=== PATIENT | male | born 1960 | race Caucasian/White ===

== ENCOUNTER 2020-11-08 07:34 | Day surgery (SDC) | payer MEDICARE ==
[~2020-11-08] VITALS: Ht 172.7 cm; Wt 75.0 kg
[2020-11-08 08:00] VITALS: BP 149/101
[2020-11-08] MEDS ORDERED: VITA1TAB31 PO (08:17)
[2020-11-08] MEDS ORDERED: INTE30SY IM (08:18)
[2020-11-08] MEDS ORDERED: PANT-47 PO (08:19)
[2020-11-08] MEDS ORDERED: OXYB5TAB16 PO (08:20)
[2020-11-08] MEDS ORDERED: LISI20TA28 PO (08:20)
[2020-11-08] MEDS ORDERED: LIOT5TAB10 PO (08:21)
[2020-11-08] MEDS ORDERED: LEVO100T9 PO (08:21)
[2020-11-08] MEDS ORDERED: NALT50TA PO (08:22)
[2020-11-08] MEDS ORDERED: LDN (08:22)
[2020-11-08] MEDS ORDERED: LYSI500T11 PO (08:23)
[2020-11-08] MEDS ORDERED: fentaNYL/PF 50MCG/1 ML 2ML syringe ONE (08:24)
[2020-11-08] MEDS ORDERED: MIDAZolam 1 MG/ML 5ML VIAL ONE (08:24)
[2020-11-08] MEDS ORDERED: ASCO-336 PO (08:24)
[2020-11-08] MEDS ORDERED: DIAZ-351 (08:25)
[2020-11-08] MEDS ORDERED: MV-M1TAB19 PO (08:27)
[2020-11-08] MEDS ORDERED: CRAN450T4 PO (08:28)
[2020-11-08] MEDS ORDERED: METH1TAB47 PO (08:28)
[2020-11-08 10:03] VITALS: BP 123/89
[2020-11-08 10:13] VITALS: BP 148/80
[2020-11-08 10:23] VITALS: BP 136/99
[2020-11-08 10:33] VITALS: BP 136/95
== END 2020-11-08 11:00 | disposition home or self-care (01) ==
LOC: GI LAB 07:34
PROVIDERS: ATTEND Internal Medicine Gastroenterology
DX: Z09 Encounter for follow-up examination after completed treatment for conditions other than malignant neoplasm (principal); K64.8 Other hemorrhoids; Z98.890 Other specified postprocedural states; Z86.010 Personal history of colon polyps
CPT/HCPCS: 45380; 99152; 99153; J2250; J3010; J7040; A4620

== ENCOUNTER 2023-02-03 09:31 | Emergency (ER) | payer MEDICARE ==
[~2023-02-03] VITALS: Ht 172.7 cm; Wt 75.0 kg
[~2023-02-03 09:31] MED LIST: ASCO-336 PO; CRAN450T4 PO; DIAZ-351; INTE30SY IM; LDN; LEVO100T9 PO; LIOT5TAB10 PO; LISI20TA28 PO; LYSI500T11 PO; METH1TAB47 PO; MV-M1TAB19 PO; NALT50TA PO; OXYB5TAB16 PO; PANT-47 PO; VITA1TAB31 PO
[2023-02-03] MEDS ORDERED: LIDOcaine 2% 10ml TOPICAL JELLY (Urojet) MM ONE ×2 (11:05)
[2023-02-03] MEDS ORDERED: LidoCAINE 2% Topical Jelly 11mL syringe MM ONE ×2 (11:05)
--- NOTE | 2023-02-03 11:35 | NUR ---
THIS RN MADE TWO ATTEMPTS TO INSERT A THOMAS CATHETER USING A 14FR AND A 14FR COUDE, STRICTURE IS VERY NEAR THE URETHRAL OPENING AND THIS INTENSIVE CARE AMBULANCE PARAMEDIC WAS UNABLE TO PLACE. DR SCHROEDER NOTIFIED, UROLOGIST TO BE PAGED.
--- NOTE | 2023-02-03 12:15 | NUR ---
DR. JAMISON AT BEDSIDE.
[2023-02-03 12:35] VITALS: BP 153/93
[2023-02-03] MEDS ORDERED: CEPH-585 PO (14:12)
== END 2023-02-03 14:37 | disposition home or self-care (01) ==
LOC: ER 09:32
DX: R33.9 Retention of urine, unspecified (principal); Z88.1 Allergy status to other antibiotic agents
CPT/HCPCS: 51702; 99283; 99284; A4358

== ENCOUNTER 2025-01-04 12:49 | Inpatient (IN) | payer MEDICARE ==
[~2025-01-04] VITALS: Ht 172.7 cm; Wt 74.1 kg
[~2025-01-04 12:49] MED LIST changes: +CEPH-585 PO; -DIAZ-351; +DIAZ-351 PO; -NALT50TA PO; +NALT50TA5 PO; -OXYB5TAB16 PO; +OXYB5TAB21 PO
--- NOTE | 2025-01-04 12:54 | Physician Documentation ---
History of Present Illness ~ Stated Complaint: GROUND LEVEL FALL Time Seen by MD: 12:49 HPI 64-year-old male presents to the ED with a complaint of four days of left hip pain. States he has a history of MS for 30 yrswhich is primarily affected the right side of his body. 4 days ago he had a fall which caused his left hip pain. He thought it would resolved by now but states that when he tries to ambulate he has 10/10 pain in his left hip. Patient has pre-existing weakness on the right side and now is unable to bear weight on his left lower extremity. He is currently being cared for by his . She was concerned she was unable to transfer him or straight cath him very to the urethral strictures that have developed over the years patient states that on the he is supposed to have a Bloom placed by Dr. Ritter Medication Reconciliation Allergies: Coded Allergies: floxacillin (Verified Allergy, Unknown, 01/04/25) Uncoded Allergies: DYE SDC BLUE (Allergy, Unknown, 11/08/20) Scheduled Ascorbic Acid (Vitamin C), 1 TAB PO DAILY, (Reported) Cephalexin*Monohydrate* (Keflex*), 1 CAP PO QID Cranberry Extract (Cranberry), Unknown Dose PO QAM, (Reported) Diazepam (Diazepam), TID, (Reported) Interferon Beta-1A (Avonex), IM weekly, (Reported) Levothyroxine Sodium (Levothyroxine Sodium), 1 TAB PO DAILY, (Reported) Liothyronine Sodium (Liothyronine Sodium), 1 TAB PO DAILY, (Reported) Lisinopril (Lisinopril), 1 TAB PO DAILY, (Reported) Lysine (l-Lysine), 1 TAB PO DAILY, (Reported) Methyl-B12/l-Mefolate/B6 Phos (Foltanx Tablet), Unknown Dose PO DAILY, (Reported) Mv-Mn/Iron/Fa/Herbal Cmplx#190 (Vitamin D3 Complete Caplet), 5,000 UNIT PO DAILY, (Reported) Naltrexone Hcl (Naltrexone Hcl), 1 TAB PO DAILY, (Reported) Oxybutynin Chloride (Oxybutynin Chloride), 1 TAB PO Q12H, (Reported) Pantoprazole Sodium (PROTONIX tablet), 1 TAB PO DAILY, (Reported) Vit B Complex 100 Cmb #2/Herbs (Sm Natural Balanced B-100 Tab), 1 TAB PO DAILY, (Reported) Miscellaneous Medications [Ldn], Unknown Dose, (Reported) Past Medical History Past Medical History: *RENAL/* Past Surgical History: other Drug Use: none Lives In: Home Review of Systems All Other Systems at this time: Reviewed and Negative ROS As stated above in the HPI, otherwise all systems are reviewed and negative. Physical Exam Physical Exam General: Alert, no apparent distress. Respiratory: Lungs clear, no respiratory distress. Cardiovascular: Regular rate and rhythm, no murmurs. Extremities: Decreased range of motion on bilateral lower extremity, unable to bear weight Neurologic: Oriented x4. Psychiatric: Normal mood and affect. Skin: Normal color, warm and dry. No edema, no ecchymosis. Progress Results/Orders Results/Orders Orders - GUME YUAN BONUS CLERK Hip Unilateral 2 Views (01/04/25 12:55) Ct Lower Extremity (01/04/25 14:42) Page Hospitalist (01/04/25 ) Completed Orders - GUME YUAN BONUS CLERK Hip Unilateral 2 Views (01/04/25 12:55) Hydrocodone/Apap 10/325 ([place] 10/325mg (01/04/25 13:50) Ct Lower Extremity (01/04/25 14:42) Vital Signs 01/04/25 12:56 Temp 98.7 Pulse 84 Resp 16 B/P (MAP) 150/109 Pulse Ox 99 O2 Flow Rate 0 Medical Decision Making Findings Patient's CT and x-ray do not show any findings of acute fracture of the left hip. Concerned that patient is still is unable to bear weight in addition to his pre-existing MS diagnosis which has caused gross weakness on his right side of his body. Based on these findings, and his be in his only clinical documentation clerk, I am currently recommending hospital admission for evaluation of physical therapy and occupational therapy along with a potentially rehab this patient is unable to care for himself. , Differential Dx:Considerations: Include: Closed head injury, Cardiac injury, Fracture(s), Intraabdominal injury, Pneumothorax, Cerebral contusion, Pulmonary contusion, Spine injury, Tracheal injury, Urological injury, Vascular injury, Abrasion(s), Contusion(s), Foreign body(s), Hematoma(s), Laceration(s), Encephalopathy, Other Departure Disposition: ADMITTED INPATIENT Admitted to Inpatient Unit: to hospitalist Impression: Primary Impression: Hip pain Additional Impression: Urinary retention Referrals: NO PRIMARY CARE PROVIDER (PCP) Signature Scribe Signature: i Attestation: The note accurately reflects work and decisions made by me.Gume Yuan - LONNY 01/04/25 15:01 GUME YUAN NP January 04, 2025 12:54
--- NOTE | 2025-01-04 13:50 | RADIOLOGY REPORT ---
CLINICAL INDICATION: fall TECHNIQUE: 3 radiographic views of the right hip were obtained. Comparison: None FINDINGS/IMPRESSION: There is no evidence of acute fracture or dislocation. Partially visualized right femoral intramedull alba harsh and dynamic screw fixation. The visualized joint space is well maintained. The alignment is anatomical. Phleboliths are noted within the right hemipelvis.
[2025-01-04] MEDS: HYDROcodone/acetaminophen 10/325mg tab PO ONE (14:02)
--- NOTE | 2025-01-04 14:53 | RADIOLOGY REPORT ---
INDICATION: fall hip, UNABLE TO BEAR WEIGHT, COMPARISON: None TECHNIQUE: CT of the right was performed without contrast. Volume transverse images were obtained an d reconstructed in multiple planes using bone and soft tissue algorithms. CONTRAST: None Radiation Dose Information: CT Dose: CTDI volume is 13.93 mGy. Dose-length product is 498.71 mGy*cm FINDINGS: The alignment is normal. The joint spaces are normal. There is no fracture, dislocation, or focal osseous lesions. The soft tissues are normal. IMPRESSION: 1.NO FRACTURE DISLOCATION OF THE LEFT HIP 2.All CT scans at this medical facility are performed using dose modulation techniques as appropriat e to a performed exam including the following: Automated exposure control was utilized; adjustment of the MA and/or KV according to patient size; and use of iterative reconstruction technique.
[2025-01-04] MEDS ORDERED: magnesium sulf-water 4G/100mL 100 ML IV PRN (15:15)
[2025-01-04] MEDS ORDERED: magnesium hydroxide 30ml (MOM) UD suspension PO PRN (15:15)
[2025-01-04] MEDS ORDERED: HYDROcodone/acetaminophen 5mg/325mg tablet PO PRN (15:15)
[2025-01-04] MEDS ORDERED: HYDROcodone/acetaminophen 10/325mg tab PO PRN (15:15)
[2025-01-04] MEDS ORDERED: morphine 2 MG/ML inj. syringe IV PRN ×2 (15:15)
[2025-01-04] MEDS ORDERED: ondansetron 4mg rapidly disintigrating tab PO PRN (15:15)
[2025-01-04] MEDS ORDERED: potassium Cl 40MEQ/1/2NS 520ml 520 ML IV PRN (15:15)
[2025-01-04] MEDS ORDERED: potassium Cl 20 mEq SR tablet PO PRN ×2 (15:15)
[2025-01-04] MEDS ORDERED: magnesium sulf-water 2g/50mL 50 ML IV PRN (15:15)
[2025-01-04] MEDS ORDERED: ondansetron/PF 4mg/2ml inj IV PRN (15:15)
[2025-01-04] MEDS ORDERED: mag hydrox/Alum hydrox/simeth 30ml oral suspension PO PRN (15:15)
[2025-01-04] MEDS ORDERED: acetaminophen 325mg tablet PO PRN ×2 (15:15)
[2025-01-04] MEDS: LidoCAINE 2% Topical Jelly 11mL syringe (UROJET) TOP ONE (15:35)
[2025-01-04 15:37] LABS: BASOPHILS # (AUTO) 0.1 X10'3 (0-0.2); BASOPHILS % (AUTO) 1.3 % (0-1); EOSINOPHILS # (AUTO) 0.2 X10'3 (0-0.9); EOSINOPHILS % (AUTO) 2.3 % (0-6); HEMATOCRIT 48.6 % (42.0-52.0); HEMOGLOBIN 16.4 g/dl (14.0-17.9); LYMPHOCYTES % (AUTO) 14.5 % (21-51); MEAN CORPUSCULAR HEMOGLOBIN 28.8 PG (27.0-31.0); MEAN CORPUSCULAR HGB CONC 33.8 g/dL (33.0-36.5); MEAN CORPUSCULAR VOLUME 85.3 FL (78-98); MEAN PLATELET VOLUME 6.7 FL (7.4-10.4); MONOCYTES # (AUTO) 0.7 X10'3 (0-0.9); MONOCYTES % (AUTO) 10.1 % (2-12); NEUTROPHILS # (AUTO) 4.8 X10'3 (1.8-7.7); NEUTROPHILS % (AUTO) 71.8 % (42-75); PLATELET COUNT 223 X10'3 (140-440); RED CELL DISTRIBUTION WIDTH 14.7 % (11.5-14.5); WHITE BLOOD COUNT 6.6 X10'3 (4.5-11.0)
[2025-01-04 15:52] LABS: ALANINE AMINOTRANSFERASE 23 U/L (12-78); ALBUMIN 3.4 G/DL (3.4-5.0); ALBUMIN/GLOBULIN RATIO 0.9 (1.1-1.5); ALKALINE PHOSPHATASE 107 IU/L (46-116); ANION GAP 6 (8-16); ASPARTATE AMINO TRANSFERASE 14 U/L (10-37); BILIRUBIN,TOTAL 0.4 MG/DL (0.1-1.0); BLOOD UREA NITROGEN 25 MG/DL (7-18); BUN/CREATININE RATIO 26.3 (10.0-20.0); CALCIUM 8.3 MG/DL (8.5-10.1); CHLORIDE 105 MMOL/L (99-107); CREATININE 0.95 MG/DL (0.60-1.10); GLUCOSE 92 MG/DL (70-104); MAGNESIUM 2.1 MG/DL (1.5-2.4); POTASSIUM 4.1 MMOL/L (3.5-5.1); SODIUM 141 MMOL/L (135-145); TOTAL CARBON DIOXIDE 30.4 MMOL/L (24-32); eCRCL 74 ML/MIN; eGFR 79 ML/MIN
[2025-01-04] MEDS ORDERED: hydrALAZINE 20mg/ml inj. IV PRN (16:25)
[2025-01-04] MEDS: normal saline 1000ml 1,000 ML IV SCH (16:31)
--- NOTE | 2025-01-04 16:34 | HISTORY AND PHYSICAL ---
History & Physical Providers to CC ~ History of Present Illness Reason for Admit\Complaint: placement History of Present Illness John Skelton is a 64-year-old male with past medical history of multiple sclerosis with right-sided paresis, urethral stricture with current straight cath use, TIA in 2023, hypertension who presented to the ED with chief complaint of new onset left-sided weakness after a witnessed mechanical fall that occurred 3 days ago. Patient states that he was able to ambulate with assistive device with existing right-sided weakness prior to fall. However since fall, patient is unable to bear weight. Patient denies prior WI/CAD, CVA, cardiac arrhythmia, DVT/PE, or GIB. Patient denies chest pain, palpitations, shortness of breath, abdominal pain, n/v/d, fever, chills. Patient is to be admitted for further workups, treatment, and physical therapy evaluation. Allergies: Coded Allergies: floxacillin (Verified Allergy, Unknown, 01/04/25) Uncoded Allergies: DYE SDC BLUE (Allergy, Unknown, 11/08/20) Home Medications Home Medications Active Reported Foltanx Tablet (Methyl-B12/l-Mefolate/B6 Phos) Unknown Strength Tablet Unknown Dose PO DAILY Vitamin D3 Complete Caplet (Mv-Mn/Iron/Fa/Herbal Cmplx#190) 1 Each Tablet 5,000 Unit PO DAILY Diazepam 5 Mg Tablet TID l-Lysine (Lysine) 500 Mg Tablet 1 Tab PO DAILY Naltrexone Hcl 50 Mg Tablet 1 Tab PO DAILY [Ldn] Unknown Strength Unknown Dose Levothyroxine Sodium 100 Mcg Tablet 1 Tab PO DAILY Liothyronine Sodium 5 Mcg Tablet 1 Tab PO DAILY Oxybutynin Chloride 5 Mg Tablet 1 Tab PO Q12H Lisinopril 20 Mg Tablet 1 Tab PO DAILY PROTONIX tablet (Pantoprazole Sodium) 40 Mg Tablet.dr 1 Tab PO DAILY Avonex (Interferon Beta-1A) 30 Mcg/0.5 Ml Kit IM WEEKLY Sm Natural Balanced B-100 Tab (Vit B Complex 100 Cmb #2/Herbs) 100 Mg Tablet 1 Tab PO DAILY Past Medical History Past Medical History Hypertension Multiple sclerosis with right-sided weakness TIA in 2023 Urethral stricture Past Surgical History Surgical History Comment Noncontributory Past Social History Social History Comment Alcohol: Denies Tobacco: Denies Illicit drug use: Denies Living situation:Lives at home with spouse ROS ROS Other than positives in HPI, all 14 review of systems are negative Exam Vitals: Vital Signs Date Time Temp Pulse Resp B/P (MAP) Pulse Ox O2 Delivery O2 Flow Rate FiO2 01/04/25 15:27 18 01/04/25 12:56 98.7 84 150/109 99 0 General: Generalized weakness, A&Ox 3, NAD HEENT: Normocephalic, PERRLA Neck: Supple, trachea midline, no JVD Chest: Clear to auscultation bilaterally Cardiovascular: RRR, S1&S2 Abdomen: Soft and nontender Extremities: No cyanosis/clubbing/or edema Central Nervous System: No focal deficits, right-sided paralysis Musculoskeletal: Right-sided paresis in upper and lower extremities; 4/5 strength in left upper and lower extremities Skin: Warm and intact Diagnostic Data Last Recorded Lab Results: 01/04/25 1527 01/04/25 1527 Additional Plan # Mechanical fall # Multiple Sclerosis # Urethral stricture -fell 3 days ago due to weakness, since then unable to ambulate even with assistive device; xray and CT negative fracture -straight cath at home, follows urologist Dr. Ritter, scheduled for suprapubic cath; consult Dr. Ritter -follow UA, PT eval, supportive care # HTN -home lisinopril dose adjusted, start amlodipine, prn hydralazine # Hx TIA -start aspirin, follow lipid panel # Hypothyroidism -continue home levothyroxine, follow TSH/T4 DVT/VTE prophylaxis: heparin Code status: Full code I spent a total of 30 minutes discussing Advanced Care Planning measures with the patient. Advance care planning: Discussed with patient the importance of advance care planning in case of emergent situation. We discussed various resuscitative measures/ ACP with the patient at the time of admission. Patient voiced understanding and patient has decided on a full code status. Date of Service: January 04, 2025 Billing Provider: RICARDO NGUYEN Common Visit Codes: [id number] INP/OBS CARE (HIGH) Secondary Visit Codes: 82177-LOTYRTTF CARE PLAN 30 MINUTES RICARDO NGUYEN January 04, 2025 16:34
[2025-01-04] MEDS ORDERED: OXYB5SYR PO (16:43)
[2025-01-04 16:47] LABS: CHOL/HDL RATIO 5.2 (0.00-4.99); CHOLESTEROL 233 MG/DL (0-200); HDL CHOLESTEROL 45 MG/DL (35-60); LDL CHOLESTEROL 158 MG/DL (50-100); TRIGLYCERIDES 81 MG/DL (20-135)
[2025-01-04 16:48] LABS: BILIRUBIN,URINE NEGATIVE (Neg); CLARITY,URINE SLIGHTLY CLOUDY (Clear); COLOR,URINE YELLOW (Yellow); GLUCOSE, URINE NEGATIVE (Neg); KETONES,URINE TRACE mg/dl (Neg); LEUKOCYTE ESTERASE ,URINE SMALL (Neg); NITRITES, URINE POSITIVE (Neg); OCCULT BLOOD,URINE SMALL (Neg); PROTEIN,URINE NEGATIVE (Neg); UROBILINOGEN,URINE 0.2 E.U/dL (0.2-1.0)
[2025-01-04 16:52] LABS: UA COLLECTION TYPE FOLEY CATH
[2025-01-04] MEDS: pantoprazole 40 MG vial IV ONE (16:52)
[2025-01-04] MEDS: amLODIPine 5mg tablet PO ONE (16:52)
[2025-01-04 16:53] LABS: BACTERIA,URINE FEW /HPF (Neg); MUCUS STRANDS NONE SEEN /LPF (Neg); SQUAMOUS EPITHELIAL CELL,UR FEW /LPF (FEW)
[2025-01-04] MEDS: aspirin 81mg, enteric-coated 1 TAB TABLET.DR PO ONE (16:53)
[2025-01-04] MEDS: lisinopril 20mg tablet PO ONE (16:53)
[2025-01-04 16:54] LABS: WBC,URINE 30-50 /HPF (0-4)
[2025-01-04 18:00] VITALS: BP_SYST 107; BP_SYST 165; BP_DIAS 63; BP_DIAS 98; PULSE 62; PULSE 77; RESP 14; RESP 18; TEMP 97.4; TEMP 98.9; O2SAT 96; O2SAT 97
[2025-01-04] MEDS: K and/or MAG REPLACEMENT MC SCH (20:00)
[2025-01-04] MEDS: heparin, porcine 5000 units/ml vial SQ SCH (21:30)
[2025-01-04] MEDS: docusate sod 100mg capsule PO SCH (21:31)
[2025-01-04 22:00] VITALS: BP_SYST 110; BP_SYST 130; BP_DIAS 80; PULSE 74; RESP 16; RESP 18; TEMP 97.7; TEMP 98.1; O2SAT 94; O2SAT 96
[2025-01-05] VITALS (7 sets, daily range): BP systolic 140–205; BP diastolic 91–119; PULSE 65–81; RESP 18–20; TEMP 97.3–98.1; O2SAT 95–96
[2025-01-05 06:08] LABS: BASOPHILS # (AUTO) 0.1 X10'3 (0-0.2); BASOPHILS % (AUTO) 1.4 % (0-1); EOSINOPHILS # (AUTO) 0.2 X10'3 (0-0.9); EOSINOPHILS % (AUTO) 3.2 % (0-6); HEMATOCRIT 45.7 % (42.0-52.0); HEMOGLOBIN 15.4 g/dl (14.0-17.9); LYMPHOCYTES % (AUTO) 17.9 % (21-51); MEAN CORPUSCULAR HEMOGLOBIN 28.8 PG (27.0-31.0); MEAN CORPUSCULAR HGB CONC 33.8 g/dL (33.0-36.5); MEAN CORPUSCULAR VOLUME 85.3 FL (78-98); MEAN PLATELET VOLUME 6.8 FL (7.4-10.4); MONOCYTES # (AUTO) 0.6 X10'3 (0-0.9); MONOCYTES % (AUTO) 11.5 % (2-12); NEUTROPHILS # (AUTO) 3.7 X10'3 (1.8-7.7); PLATELET COUNT 186 X10'3 (140-440); RED BLOOD COUNT 5.36 X10'6 (4.70-6.10); RED CELL DISTRIBUTION WIDTH 14.9 % (11.5-14.5); WHITE BLOOD COUNT 5.5 X10'3 (4.5-11.0)
[2025-01-05 06:38] LABS: ALANINE AMINOTRANSFERASE 17 U/L (12-78); ALKALINE PHOSPHATASE 94 IU/L (46-116); ANION GAP 6 (8-16); ASPARTATE AMINO TRANSFERASE 9 U/L (10-37); BILIRUBIN,TOTAL 0.4 MG/DL (0.1-1.0); BLOOD UREA NITROGEN 22 MG/DL (7-18); BUN/CREATININE RATIO 19.1 (10.0-20.0); CHLORIDE 110 MMOL/L (99-107); CREATININE 1.15 MG/DL (0.60-1.10); FREE T4 (FREE THYROXINE) 0.94 NG/DL (0.73-1.40); GLUCOSE 91 MG/DL (70-104); MAGNESIUM 2.1 MG/DL (1.5-2.4); POTASSIUM 4.5 MMOL/L (3.5-5.1); SODIUM 143 MMOL/L (135-145); THYROID STIMULATING HORMONE 8.01 ulU/ml (0.34-4.50); TOTAL CARBON DIOXIDE 27.3 MMOL/L (24-32); TOTAL PROTEIN 6.1 G/DL (6.4-8.2); eCRCL 61 ML/MIN; eGFR 64 ML/MIN
[2025-01-05] MEDS ORDERED: diphenhydrAMINE 50 mg/ml inj IV PRN (08:00)
[2025-01-05] MEDS: lisinopril 20mg tablet PO SCH (08:18)
[2025-01-05] MEDS: levoTHYROXINE 100mcg tablet PO SCH (08:18)
[2025-01-05] MEDS: amLODIPine 5mg tablet PO SCH (08:18)
[2025-01-05] MEDS: aspirin 81mg, enteric-coated 1 TAB TABLET.DR PO SCH (08:18)
[2025-01-05] MEDS: pantoprazole 40 MG vial IV SCH (09:32)
[2025-01-05] MEDS: CefTRIAXone 2gm/D5W 50ml BAG 50 ML IV SCH (09:32)
[2025-01-05] MEDS ORDERED: bisacodyl 10mg suppository rectal RC PRN (10:35)
--- NOTE | 2025-01-05 10:45 | PROGRESS NOTE ---
Daily Progress Note Providers to CC ~ Antibiotic Timeout Antibiotic Ordered?: Yes If Yes, Indications: UTI Subjective No acute events overnight. Patient examined at bedside. No new complaints, not in acute distress. Patient denies chest pain, sob, palpitations, abdominal pain, n/v/d. Vss, bloodwork unremarkable, UA positive, culture positive for Gram negative Saqib, on ceftriaxone, pending sensitivities. Objective Vital Signs Date Time Temp Pulse Resp B/P (MAP) Pulse Ox O2 Delivery O2 Flow Rate FiO2 01/05/25 08:18 67 01/04/25 22:00 98.1 16 110/80 (90) 96 Room Air 01/04/25 16:36 0 Result Diagram: 01/05/2552501/05/25525 Physical Exam General: Generalized weakness, A&Ox 3, NAD HEENT: Normocephalic, PERRLA Neck: Supple, trachea midline, no JVD Chest: Clear to auscultation bilaterally Cardiovascular: RRR, S1&S2 Abdomen: Soft and nontender Extremities: No cyanosis/clubbing/or edema Central Nervous System: No focal deficits, right-sided paralysis Musculoskeletal: Right-sided paresis in upper and lower extremities; 4/5 strength in left upper and lower extremities Skin: Warm and intact Problem\Assessment\Plan # UTI- POA # Mechanical fall # Multiple Sclerosis # Urethral stricture -fell 3 days ago due to weakness, since then unable to ambulate even with assistive device; xray and CT negative fracture -straight cath at home, follows urologist Dr. Ritter, scheduled for suprapubic cath; consult Dr. Ritter -follow UA, PT eval, supportive care -01/04: UA positive UTI, gram negative saqib; start ceftriaxone # HTN -home lisinopril dose adjusted, start amlodipine, prn hydralazine # Hx TIA -start aspirin, follow lipid panel # Hypothyroidism -continue home levothyroxine, follow TSH/T4 DVT/VTE prophylaxis: heparin Code status: Full code Date of Service: January 05, 2025 Billing Provider: RICARDO NGUYEN Common Visit Codes: [id number] INP/OBS CARE(HIGH) RICARDO NGUYEN January 05, 2025 10:45
[2025-01-05] MEDS: bisacodyl 10mg suppository rectal RC STA (14:49)
[2025-01-06 04:46] LABS: BASOPHILS # (AUTO) 0.1 X10'3 (0-0.2); BASOPHILS % (AUTO) 1.3 % (0-1); EOSINOPHILS # (AUTO) 0.2 X10'3 (0-0.9); EOSINOPHILS % (AUTO) 2.9 % (0-6); HEMATOCRIT 49.2 % (42.0-52.0); HEMOGLOBIN 16.7 g/dl (14.0-17.9); MEAN CORPUSCULAR HEMOGLOBIN 28.9 PG (27.0-31.0); MEAN PLATELET VOLUME 6.8 FL (7.4-10.4); MONOCYTES # (AUTO) 0.8 X10'3 (0-0.9); MONOCYTES % (AUTO) 11.6 % (2-12); NEUTROPHILS # (AUTO) 4.8 X10'3 (1.8-7.7); NEUTROPHILS % (AUTO) 70.2 % (42-75); PLATELET COUNT 195 X10'3 (140-440); RED BLOOD COUNT 5.78 X10'6 (4.70-6.10); WHITE BLOOD COUNT 6.8 X10'3 (4.5-11.0)
[2025-01-06 05:07] LABS: ALANINE AMINOTRANSFERASE 21 U/L (12-78); ALBUMIN 3.5 G/DL (3.4-5.0); ALBUMIN/GLOBULIN RATIO 0.9 (1.1-1.5); ALKALINE PHOSPHATASE 111 IU/L (46-116); ANION GAP 8 (8-16); ASPARTATE AMINO TRANSFERASE 18 U/L (10-37); BILIRUBIN,TOTAL 0.5 MG/DL (0.1-1.0); BLOOD UREA NITROGEN 16 MG/DL (7-18); BUN/CREATININE RATIO 15.7 (10.0-20.0); CALCIUM 8.4 MG/DL (8.5-10.1); CHLORIDE 107 MMOL/L (99-107); CREATININE 1.02 MG/DL (0.60-1.10); GLUCOSE 106 MG/DL (70-104); MAGNESIUM 1.8 MG/DL (1.5-2.4); POTASSIUM 3.9 MMOL/L (3.5-5.1); SODIUM 141 MMOL/L (135-145); TOTAL CARBON DIOXIDE 25.6 MMOL/L (24-32); TOTAL PROTEIN 7.2 G/DL (6.4-8.2); eCRCL 69 ML/MIN; eGFR 73 ML/MIN
[2025-01-06 06:00] VITALS: BP 157/72; PULSE 69; RESP 18; TEMP 97.6; O2SAT 97
[2025-01-06] MEDS: pantoprazole 40mg Tablet.DR PO SCH (07:30)
[2025-01-06 08:00] VITALS: RESP 18; O2SAT 97
[2025-01-06] MEDS ORDERED: levoTHYROXINE 100mcg tablet PO SCH (08:00)
[2025-01-06] MEDS ORDERED: lisinopril 20mg tablet PO SCH (08:00)
[2025-01-06 09:03] VITALS: RESP 16; O2SAT 96
[2025-01-06] MEDS: liothyronine sod 5mcg tablet PO SCH (09:43)
[2025-01-06] MEDS: amLODIPine 5mg tablet PO SCH (09:43)
[2025-01-06 10:00] VITALS: BP 142/80; PULSE 78; RESP 18; TEMP 97.9; O2SAT 96
--- NOTE | 2025-01-06 16:46 | PROGRESS NOTE- Residence ---
Progress Note - Resident Providers to CC Resident Creating Document: UGO SALDANA RES ~ Antibiotic Timeout Antibiotic Ordered?: Yes Subjective Patient was sitting comfortably at the surgical unit bedside. Patient explained that he has a plan to have SPA catheter on coming this month as an outpatient setting. Dr. Robbins already knows that the patient was admitted to surgical floor. Patient refused to have antibiotics-ceftriaxone for his UTI which was not recommended by Dr. Ritter as he has been frequent straight catheterization for his urethral stricture. Urine culture showed Gram-negative rods. Patient does not have any active lower urinary tract infection symptoms at the moment. Objective Vital Signs Date Time Temp Pulse Resp B/P (MAP) Pulse Ox O2 Delivery O2 Flow Rate FiO2 01/06/25 10:00 97.9 78 18 142/80 (100) 96 Room Air 01/06/25 08:00 0.0 Result Diagram: 01/06/2542301/06/25423 Vitals were stable at the moment. On examination, General: Well alert, well oriented, not confused, not agitated, not in acute distress, well cooperated during the physical. HEENT: Conjunctive are pink, sclerae clear, no icterus, pupil is equal in both sides, reactive to light, no ear discharge, no pharyngeal erythema or an edema, mouth and lips are moist. Neck: Supple, no JVD, no lymphadenopathy and thyromegaly. Lungs:Equal air entry on both lungs, no additional sounds Heart: S1-S2 regular sinus rhythm and, regular rate, no gallops, no rubs, no murmurs Abdomen: No visible peristalsis, Bowel sounds present on auscultation, soft, nontender, no guarding, no rigidity Extremities: No obvious deformities, no pitting edema bilaterally, capillary refill intact, able to wiggle toes both sides, peripheral pulsations are intact on both sides BOOKING POLICE OFFICER: No focal neurological deficits, no motor and sensory weakness in all extremities, could move all extremities except for the right-sided hemiparesis Musculoskeletal: No joint swelling, deformities, inflammations, and no scoliosis and back tenderness Skin: No active skin lesions and rashes Assessment Assessment A 64 years old male with a past medical history of multiple sclerosis complicated with a right-sided paresis, TIA in 2023, history of hypertension, urethral stricture with the current straight catheterization, and frequent ground level falls from the imbalance presented to ER with witnessed ground level fall from the imbalances on the left leg three days ago. Plan Plan # GLF # multiple sclerosis with right-sided hemiparesis # history of recurrent for history is from the imbalance -patient denies chest pain/discomfort/pressure, lightheadedness dizziness and fainting attacks before fall down -CTA x-ray negative for fracture -PT eval recommended for rehab # urethral stricture with current straight catheterization # asymptomatic [id number] rods -pending C&S results -proposed to initiate IV ceftriaxone for UTI, which was refused by the patient with his thoughts of being contaminated at from the recurrent strict catheterization -Dr. Schuster Urology was aware of the pt admission and has a plan for SPA catheterization maybe at the outpatient setting # history of hypertension -continue home lisinopril, increase the dosage of amlodipine to 10 mg along with p.r.n. hydralazine # history of hypothyroidism # mixed dyslipidemia -TSH rechecked on 01/05/2025 showed 8.01, free T4 0.94 -lipid profile showed total cholesterol 233, LDL 158, triglyceride 81 -continue his home medication levothyroxine 100 mcg daily, liothyronine 5 mcg daily -recommend to rechecked TFT again in next six weeks to adjust the medication dosage CODE STATUS: Full code DVT prophylaxis: Sc heparin Analgesia/sedation: IV morphine Lines/tubes: Peripheral IV GI prophylaxis: Maalox Nutrition: Heart healthy Prognosis: Guarded Disposition: Continue medical management, follow up with Urology plan, PT eval, and DC tomorrow. Resident MD attestation: Patient was seen and examined with attending MD, Dr. Yesi SALDANA MD Internal Medicine Resident, PGY2 [facility] Date of Service: January 06, 2025 Billing Provider: PHILIP HOLLIS MD Common Visit Codes: [id number] INP/OBS CARE(HIGH) UGO SALDANA, TERENCE January 06, 2025 16:46 PHILIP HOLLIS MD January 06, 2025 19:31
[2025-01-06 22:00] VITALS: BP 127/86; PULSE 86; RESP 18; TEMP 96.2; O2SAT 95
[2025-01-07 05:17] LABS: BASOPHILS # (AUTO) 0.1 X10'3 (0-0.2); BASOPHILS % (AUTO) 1.3 % (0-1); EOSINOPHILS # (AUTO) 0.2 X10'3 (0-0.9); EOSINOPHILS % (AUTO) 2.2 % (0-6); HEMOGLOBIN 16.3 g/dl (14.0-17.9); LYMPHOCYTES # (AUTO) 1.2 X10'3 (1.1-4.8); LYMPHOCYTES % (AUTO) 16.6 % (21-51); MEAN CORPUSCULAR HEMOGLOBIN 28.5 PG (27.0-31.0); MEAN CORPUSCULAR HGB CONC 33.2 g/dL (33.0-36.5); MEAN CORPUSCULAR VOLUME 85.8 FL (78-98); MEAN PLATELET VOLUME 7.1 FL (7.4-10.4); MONOCYTES # (AUTO) 0.6 X10'3 (0-0.9); MONOCYTES % (AUTO) 8.8 % (2-12); NEUTROPHILS # (AUTO) 5.2 X10'3 (1.8-7.7); NEUTROPHILS % (AUTO) 71.1 % (42-75); PLATELET COUNT 211 X10'3 (140-440); RED CELL DISTRIBUTION WIDTH 15.3 % (11.5-14.5); WHITE BLOOD COUNT 7.3 X10'3 (4.5-11.0)
[2025-01-07 05:30] LABS: ALANINE AMINOTRANSFERASE 23 U/L (12-78); ALBUMIN 3.3 G/DL (3.4-5.0); ALBUMIN/GLOBULIN RATIO 0.9 (1.1-1.5); ALKALINE PHOSPHATASE 107 IU/L (46-116); ANION GAP 8 (8-16); ASPARTATE AMINO TRANSFERASE 13 U/L (10-37); BILIRUBIN,TOTAL 0.3 MG/DL (0.1-1.0); BLOOD UREA NITROGEN 25 MG/DL (7-18); BUN/CREATININE RATIO 20.2 (10.0-20.0); CALCIUM 8.9 MG/DL (8.5-10.1); CHLORIDE 108 MMOL/L (99-107); CREATININE 1.24 MG/DL (0.60-1.10); GLUCOSE 113 MG/DL (70-104); MAGNESIUM 1.9 MG/DL (1.5-2.4); POTASSIUM 4.1 MMOL/L (3.5-5.1); SODIUM 144 MMOL/L (135-145); TOTAL CARBON DIOXIDE 27.7 MMOL/L (24-32); TOTAL PROTEIN 6.8 G/DL (6.4-8.2); eCRCL 57 ML/MIN; eGFR 58 ML/MIN
[2025-01-07 06:00] VITALS: BP 132/82; PULSE 65; RESP 16; TEMP 97.3; O2SAT 96
[2025-01-07 08:00] VITALS: RESP 16; O2SAT 96
[2025-01-07 10:00] VITALS: BP 121/82; PULSE 81; RESP 16; TEMP 98.1; O2SAT 96
--- NOTE | 2025-01-07 17:01 | DISCHARGE SUMMARY-Residence ---
Discharge Summary Providers to CC Resident Creating Document: SHANAUGO, RES ~ Discharge Summary Admission Diagnosis: placement, acute deconditioning Hospital Course DATE OF ADMISSION: 01/04/2025 DATE OF DISCHARGE: 01/07/2025 Discharge Diagnosis\Comment: # GLF # multiple sclerosis with right-sided hemiparesis # history of recurrent fall history from the imbalance # urethral stricture with current straight catheterization, planning for Suprapubic Catheter/SPC placement by Dr Ritter # asymptomatic UTI- Klebsiella oxytoca # history of hypertension # history of hypothyroidism # mixed dyslipidemia Operations\Procedures: None Consultants: Dr. Ritter, Urology Complications: None Condition on DC: Stable Discharge Summary: A 64 years old male with a past medical history of multiple sclerosis comp licated with a right-sided paresis, TIA in 2023, history of hypertension, urethral stricture with the current straight catheterization, and frequent ground level falls from the imbalance presented to ER with witnessed ground level fall from the imbalances on the left leg three days ago. Hospital course: Patient was admitted to the hospital for further evaluation of his ground level fall complicated from new left-sided pain and weakness in the setting of multiple sclerosis with right-sided hemiparesis. Dr. Ritter, Urology was requested for the consultation for his asymptomatic UTI growth with Klebsiella o xytoca complicated from recurrent straight catheterization and possible SPC placement plan. He underwent right hip x-ray which showed no evidence of acute fracture or dislocation with evidence of right femoral intramedullary harsh and dynamic screw fixation, anatomical alignment, phleboliths were noted within the right hemipelvis. He also have lower extremity CT scan showed no acute fracture dislocation of the left hip as well. He was proposed to have IV ceftriaxone for his Klebsiella oxytoca asymptomatic UTI, patient refused to have one since he and Dr. Ritter did not believe the actual UTI and contaminated from straight urinary catheterization. His blood pressure was controlled with home medications lisinopril and amlodipine 10 mg along with p.r.n. hydralazine during hospitalization. TSH was rechecked on 01/05/2025 showed 8.01, free T4 0.94 and continued his home medication levothyroxine 100 mcg daily, liothyronine 5 mcg daily and recommended to recheck TFT again in next six weeks to adjust the medication dosage. His lipid profile showed total cholesterol 233, LDL 158, triglyceride 81. DVT prophylaxis was achieved with the sc heparin 5000 units b.i.d., pain was monitor and then managed with IV morphine. Was evaluated with a PT eval to touch his baseline before discharge and all of his questions and concerns were answered with the best knowledge of her team. Today, all of his labs were reviewed and within normal limits with creatinine 1.24, RBS 113. Vitals were stable at the moment with temp 97.3 F, PA 65/minute, RR 16/minute, BP 132/82 mm Hg, pulse oximetry 96% on room air. On examination, General: Well alert, well oriented, not confused, not agitated, not in acute distress, well cooperated during the physical. HEENT: Conjunctive are pink, sclerae clear, no icterus, pupil is equal in both sides, reactive to light, no ear discharge, no pharyngeal erythema or an edema, mouth and lips are moist. Neck: Supple, no JVD, no lymphadenopathy and thyromegaly. Lungs:Equal air entry on both lungs, no additional sounds Heart: S1-S2 regular sinus rhythm and, regular rate, no gallops, no rubs, no murmurs Abdomen: No visible peristalsis, Bowel sounds present on auscultation, soft, nontender, no guarding, no rigidity Extremities: No obvious deformities, no pitting edema bilaterally, capillary refill intact, able to wiggle toes both sides, peripheral pulsations are intact on both sides LAND CONSERVATION SPECIALIST: No focal neurological deficits, no motor and sensory weakness in all extremities, could move all extremities except for the right-sided hemiparesis Musculoskeletal: No joint swelling, deformities, inflammations, and no scoliosis and back tenderness Skin: No active skin lesions and rashes Discharge instructions: -return to ER for any new neurological changes from multiple sclerosis, Emergency fall injury and any other emergent condition etc. -follow up with PCP and Urology for further management including SPC placement -medication compliance -PT eval and rehabilitation Resident attestation: Patient was seen and examined with attending MD, Dr. Yesi SALDANA MD Internal Medicine Resident, PGY2 [facility] *Problems/Diagnosis: (1) Ground-level fall Status: Resolved Total Time Spent on D/C: > 30 Minutes Date of Service: January 07, 2025 Billing Provider: PHILIP HOLLIS MD Common Visit Codes: [id number]/OBS DISCH DAY >30min UGO SALDANA, RES January 07, 2025 17:00 PHILIP HOLLIS MD January 07, 2025 22:16
== END 2025-01-07 18:38 | DRG 59 ==
LOC: ER 12:49 → ED HOLD 15:16 → SUR 3N 17:20 → ORTHO 4S 01-06 16:22
PROVIDERS: ADMIT Nurse Practitioner Family; ATTEND Nurse Practitioner Family
DX: G35 Multiple sclerosis (principal); N39.0 Urinary tract infection, site not specified; T83.518A Infection and inflammatory reaction due to other urinary catheter, initial encounter; G81.91 Hemiplegia, unspecified affecting right dominant side; N35.919 Unspecified urethral stricture, male, unspecified site; E78.2 Mixed hyperlipidemia; E03.9 Hypothyroidism, unspecified; I10 Essential (primary) hypertension; Y83.8 Other surgical procedures as the cause of abnormal reaction of the patient, or of later complication, without mention of misadventure at the time of the procedure; Z86.73 Personal history of transient ischemic attack (TIA), and cerebral infarction without residual deficits; Z88.1 Allergy status to other antibiotic agents; Z91.048 Other nonmedicinal substance allergy status; Z79.899 Other long term (current) drug therapy; Y92.89 Other specified places as the place of occurrence of the external cause
CPT/HCPCS: 36415; 73502; 73700; 80053; 80061; 81001; 83735; 84439; 84443; 85025; 87077; 87088; 87186; 96361; 96374; 97110; 97162; 97530; 99285; C1758; G0378; J0696; J1644; J2470; J7030; J7040